=== PATIENT | female | born 1970 ===

== ENCOUNTER 2017-09-25 12:31 | Emergency (ER) | payer OTHER ==
[2017-09-25] MEDS ORDERED: Ketorolac 60 MG/2 ML SDV IM ONE ×2 (12:44→12:45)
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
--- NOTE | 2017-09-25 14:00 | CR ---
EXAMINATION: Left hand and wrist HISTORY: Pain COMPARISON: None TECHNIQUE: 2 views of the left hand and 2 views of the left wrist FINDINGS: There is a mildly displaced ulnar styloid fracture identified. There is also an impacted no ndisplaced distal radial metaphysis fracture identified. Mild degenerative changes noted within the w rist. Remaining osseous structures and joint spaces are preserved. IMPRESSION: 1. Mildly impacted distal radial metaphysis fracture. 2. Mildly displaced ulnar styloid fracture.
[2017-09-25] MEDS ORDERED: Acetaminophen/HYDROcodone 325-5 MG Tab ONE (14:33)
[2017-09-25] MEDS ORDERED: Acetaminophen/HYDROcodone 325-5 MG Tab PO ONE (14:35)
[2017-09-25 17:50] VITALS: BP 136/78
== END 2017-09-25 15:02 | disposition home or self-care (01) ==
LOC: MW.ED 12:31
DX: S52.612A Displaced fracture of left ulna styloid process, initial encounter for closed fracture (principal); S52.502A Unspecified fracture of the lower end of left radius, initial encounter for closed fracture; E78.00 Pure hypercholesterolemia, unspecified; F17.210 Nicotine dependence, cigarettes, uncomplicated; Z88.0 Allergy status to penicillin; X50.0XXA Overexertion from strenuous movement or load, initial encounter
CPT/HCPCS: 29125; 73100; 73120; 96372; 99283; A9270; J1885

== ENCOUNTER 2020-06-27 20:57 | Emergency (ER) | payer OTHER ==
[2020-06-27] MEDS ORDERED: Ondansetron 4 MG/2 ML SDV IVPUSH ONE (21:25)
[2020-06-27] MEDS ORDERED: Lactated Ringers 1,000 ML IV ONE (21:31)
[2020-06-27] MEDS ORDERED: Meclizine 25 MG Tab PO ONE (21:42)
[2020-06-27 22:02] LABS: BLOOD UREA NITROGEN,BUN 8 mg/dL (7.0-18.0); CARBON DIOXIDE,CO2 21.4 mmol/L (21.0-32.0); CHLORIDE,CL 102 mmol/L (98-107); GLUCOSE RANDOM 146 mg/dL (74-106); SODIUM,NA 135 mmol/L (136-145)
--- NOTE | 2020-06-27 22:37 | CT ---
CT HEAD DATE: 06/27/2020 CLINICAL HISTORY: Patient with frontal headache. TECHNIQUE: Standard CT scanning of the head was performed. COMPARISON: None. FINDINGS: There is no intracranial hemorrhage. There is no territorial infarction. There are mild microangiopathic changes. There is diffuse parenchymal volume loss. There is no mass effect or midline shift. The calvarium is unremarkable. The orbits are unremarkable. The paranasal sinuses demonstrate moderate ethmoid air cell mucosal thickening, aerosolized secretions in the right sphenoid and maxillary sinuses, as well as a mucous retention cyst in the right frontal sinus. The mastoid air cells are unremarkable. The soft tissues are unremarkable. IMPRESSION: 1. No intracranial hemorrhage or territorial infarction. 2. Mild microangiopathic changes and diffuse parenchymal volume loss. 3. Moderate paranasal mucosa sinus disease. Please note that all CT scans at this facility use dose modulation, iterative reconstruction, and/or weight-based dosing when appropriate to reduce radiation dose to as low as reasonably achievable. Dictated by: Keagan Dill MD @ 06/27/2020 22:35:09 (Electronically Signed)
[2020-06-27] MEDS ORDERED: Ketorolac 30 MG/ML SDV IVPUSH ONE (22:38)
--- NOTE | 2020-06-27 22:45 | CR ---
Indication: Chest discomfort Technique: Chest 1 view Comparison: Chest x-ray 02/06/2016 Findings/Impression: Cardiovascular and mediastinum: Heart size and vasculature are normal in caliber and appearance. Lungs and pleural space: Lungs are clear. No sign of infiltrate or mass. No sign of pleural effusion. No pneumothorax. Bones and soft tissues: No acute findings. Dictated by Syed Jules MD @ Jun 27 2020 10:43PM Signed by Dr. Syed Jules @ Jun 27 2020 10:44PM
--- NOTE | 2020-06-27 23:21 | EDM.PDOC ---
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 She denies any bilious emesis or hematemesis. She denies any preceding chest pain or shortness of breath and currently denies any chest pain or shortness of breath. She states that she denies any abdominal pain, diarrhea, melena, or hematochezia. She states that she did have a headache which is in the frontal area of her head which started approximately 1 hour prior to the episode at [employer]. She states that it was associated with feeling uneasy. She describes the pain as maximal at onset and has since improved. She denies any blurry vision, diplopia, numbness, tingling, trouble walking, trouble speaking, or trouble swallowing. She states that she does have a history of headaches however this felt worse. She also states that she feels loopy. She denies any spinning sensation but states that she does feel uneasy. She denies any family history of aneurysm. She denies any other symptoms. She denies any known sick contacts. She denies any new foods or drinks. REVIEW OF SYSTEMS: Constitutional: Denies fever, chills. Eyes: Denies eye pain Ears, Nose, Mouth, & Throat: Denies earache, sore throat, runny nose Cardiovascular: Denies chest pain Respiratory: Denies shortness of breath Gastrointestinal: Positive for nausea and vomiting. Denies diarrhea, hematochezia, melena, hematemesis, bilious emesis, abdominal pain Genitourinary: Denies hematuria, dysuria, vaginal bleeding, vaginal discharge Skin:Denies a rash Neurological: Positive for headache and dizziness. Denies blurred vision, numbness, tingling, weakness, trouble walking, trouble speaking, trouble swallowing Psychiatric: Denies depression PAST MEDICAL HISTORY: As per history of present illness and as reviewed below otherwise noncontributory. SURGICAL HISTORY: As per history of present illness and as reviewed below otherwise noncontributory. LMP: Hysterectomy SOCIAL HISTORY: As per history of present illness and as reviewed below otherwise noncontributory. FAMILY HISTORY: As per history of present illness and as reviewed below otherwise noncontributory. EXAMINATION OF ORGAN SYSTEMS/BODY AREAS: Constitutional: Blood pressure was 147/90, heart rate 101, respiratory rate 18 with an oxygen saturation of 97% on room air. Temperature 36.0 General: Ill-appearing woman who has an emesis basin in front of her. Psychiatric: Appropriate mood and affect. Eyes: No scleral icterus or conjunctival erythema pupils were 2 mm and reactive bilaterally. Extraocular movements were intact. No vertical, horizontal, or rotary nystagmus. ENMT: Moist mucous membranes. No pharyngeal erythema bilateral tympanic membranes clear without any erythema or effusion. Cardiovascular: Tachycardic but regular. No gallops, murmurs, or rubs. Bilateral upper extremity pulses symmetric and intact. No peripheral edema. No JVD. Respiratory: Lungs clear to auscultation bilaterally. No wheezes, rales, or rhonchi. Gastrointestinal: Soft, non-tender, non-distended. Normoactive bowel sounds Genitourinary: No suprapubic tenderness no CVA tenderness. Musculoskeletal: Normal range of motion. Skin: No lesions or abrasions. Neurological: AOx4. CN grossly intact. Stregth 5/5 in bilateral upper and lower extremity. Sensation is intact bilaterally in upper and lower extremity. Gait appears normal. Finger to nose, heel to han, rapid alternating movements intact. MEDICAL DECISION MAKING AND COURSE IN THE ED WITH INTERPRETATION/REVIEW OF DIAGNOSTIC STUDIES: This is a 50-year-old woman without any significant past medical history who comes to the emergency department with acute onset headache which was maximal at onset associated with nausea and vomiting who is experiencing vertigo-like symptoms with a normal neurological examination. At this time given that it his been 2 hours since onset we will obtain a CT head without contrast to evaluate for subarachnoid hemorrhage. We will provide the patient with Zofran for antinausea relief. Provide the patient with 1 L of lactated Ringer's bolus. Will also provide the patient with meclizine by mouth. Will hold off on pain medication at this time until CT head has resulted. Also given the sudden onset nausea and vomiting this could also be atypical presentation of ACS therefore we will obtain an EKG, chest x-ray, and cardiac work-up. Laboratory: CBC reveals a leukocytosis of 15.69 otherwise unremarkable. Coags are within normal limits. CMP is unremarkable except for hyponatremia at 135 and hyperglycemia at 146. [id number] glucose was found to be 129. Troponin x1 is negative Urinalysis was a clean catch and was negative for leukocyte esterase, negative for nitrites, and negative for blood. Interpretation: negative. Twelve-lead EKG interpreted by myself. Sinus tachycardia at a rate of 107beats per minute. Normal axis. FL interval is 153ms. QRS duration is 100ms. ST segments are normal without elevations or depressions. No Q waves present. Hypertrophy not noted there is an isolated T wave inversion in lead III. This appears to be unchanged from prior EKG dated 02/06/2016. Interpretation: Sinus tachycardia The radiological images were viewed by myself along with reading the report from the radiologist. CT head without contrast does not reveal any acute intracranial hemorrhage or abnormality. 1 view chest x-ray reveals no acute cardiopulmonary process. After CT had had resulted I did provide the patient with Toradol IV for pain relief. Repeat troponin was negative. After period of observation, the patient stated that her symptoms had significantly improved. At this time I do believe this is secondary to benign positional vertigo. I discussed with the patient that I be providing her with meclizine as needed for dizziness. I discussed the importance of following up with her primary care physician. She is given strict return precautions. The patient was amenable discharge at this time and had no further questions DISPOSITION: The patient was discharged home in stable condition. The patient will follow up with PCP within 1 week CONDITION: Fair PROCEDURES: None FINAL IMPRESSION(S)/DIAGNOSES: 1. Acute vertigo likely benign positional vertigo Mauricio Landa M.D. 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 Musculoskeletal History: Reports: Neck Pain, Chronic Other Musculoskeletal History: back sx Neurological History: Reports: None Psychiatric History: Reports: None Endocrine/Metabolic History: Reports: None Hematologic History: Reports: None Immunologic History: Reports: None Oncologic (Cancer) History: Reports: None Dermatologic History: Reports: None - Infectious Disease History Infectious Disease History: Reports: Chicken Pox - Past Surgical History Head Surgeries/Procedures: Reports: None Female Surgical History: Reports: Hysterectomy Musculoskeletal Surgical History: Reports: Other (See Below) Social & Family History - Family History Family Medical History: Noncontributory - Caffeine Use Caffeine Use: Reports: Coffee - Recreational Drug Use Recreational Drug Use: No ED ROS GENERAL - Review of Systems Review Of Systems: See Below ED EXAM, GENERAL - Physical Exam Exam: See Below Course - Vital Signs Last Recorded V/S: Last Vital Signs Temp 36.4 C 06/27/20 22:48 Pulse 81 06/28/20 02:00 Resp 16 06/28/20 02:00 BP 112/69 06/28/20 02:00 Pulse Ox 96 06/28/20 02:00 - Orders/Labs/Meds Labs: Laboratory Tests 06/27/20 06/27/20 06/27/20 Range/Units 21:32 21:35 21:35 WBC 15.69 H (4.0-11.0) K/uL RBC 5.01 (4.30-5.90) M/uL Hgb 15.6 (12.0-16.0) g/dL Hct 45.2 (36.0-46.0) % MCV 90.2 (80.0-98.0) fL MCH 31.1 (27.0-32.0) pg MCHC 34.5 (31.0-37.0) g/dL RDW Std Deviation 44.3 (28.0-62.0) fl RDW Coeff of Alycia 13 (11.0-15.0) % Plt Count 294 (150-400) K/uL MPV 9.50 (7.40-12.00) fL Neut % (Auto) 77.7 (48.0-80.0) % Lymph % (Auto) 16.8 (16.0-40.0) % [place] % (Auto) 4.6 (0.0-15.0) % Eos % (Auto) 0.6 (0.0-7.0) % Baso % (Auto) 0.3 (0.0-1.5) % Neut # (Auto) 12.2 H (1.4-5.7) K/uL Lymph # (Auto) 2.6 H (0.6-2.4) K/uL [place] # (Auto) 0.7 (0.0-0.8) K/uL Eos # (Auto) 0.1 (0.0-0.7) K/uL Baso # (Auto) 0.1 (0.0-0.1) K/uL INR 1.00 Sodium (136-145) mmol/L Potassium (3.5-5.1) mmol/L Chloride (98-107) mmol/L Carbon Dioxide (21.0-32.0) mmol/L BUN (7.0-18.0) mg/dL Creatinine (0.6-1.0) mg/dL Est Cr Clr Drug Dosing mL/min Estimated GFR (MDRD) ml/min Glucose (74-106) mg/dL POC Glucose 129 H (60-110) mg/dL Calcium (8.5-10.1) mg/dL Magnesium (1.8-2.4) mg/dL Total Bilirubin (0.2-1.0) mg/dL AST (15-37) IU/L ALT (14-63) IU/L Alkaline Phosphatase (46-116) U/L Troponin I (0.000-0.056) ng/mL Total Protein (6.4-8.2) g/dL Albumin (3.4-5.0) g/dL Globulin (2.6-4.0) g/dL Albumin/Globulin Ratio (0.9-1.6) Urine Color Urine Appearance Urine pH (5.0-8.0) Ur Specific [place] (1.001-1.035) Urine Protein (NEGATIVE) mg/dL Urine Glucose (UA) (NEGATIVE) mg/dL Urine Ketones (NEGATIVE) mg/dL Urine Occult Blood (NEGATIVE) Urine Nitrite (NEGATIVE) Urine Bilirubin (NEGATIVE) Urine Urobilinogen (<2.0) EU/dL Ur Leukocyte Esterase (NEGATIVE) 06/27/20 06/27/20 06/28/20 Range/Units 21:35 22:40 00:40 WBC (4.0-11.0) K/uL RBC (4.30-5.90) M/uL Hgb (12.0-16.0) g/dL Hct (36.0-46.0) % MCV (80.0-98.0) fL MCH (27.0-32.0) pg MCHC (31.0-37.0) g/dL RDW Std Deviation (28.0-62.0) fl RDW Coeff of Alycia (11.0-15.0) % Plt Count (150-400) K/uL MPV (7.40-12.00) fL Neut % (Auto) (48.0-80.0) % Lymph % (Auto) (16.0-40.0) % [place] % (Auto) (0.0-15.0) % Eos % (Auto) (0.0-7.0) % Baso % (Auto) (0.0-1.5) % Neut # (Auto) (1.4-5.7) K/uL Lymph # (Auto) (0.6-2.4) K/uL [place] # (Auto) (0.0-0.8) K/uL Eos # (Auto) (0.0-0.7) K/uL Baso # (Auto) (0.0-0.1) K/uL INR Sodium 135 L (136-145) mmol/L Potassium 4.0 (3.5-5.1) mmol/L Chloride 102 (98-107) mmol/L Carbon Dioxide 21.4 (21.0-32.0) mmol/L BUN 8 (7.0-18.0) mg/dL Creatinine 0.6 (0.6-1.0) mg/dL Est Cr Clr Drug Dosing 106.18 mL/min Estimated GFR (MDRD) > 60.0 ml/min Glucose 146 H (74-106) mg/dL POC Glucose (60-110) mg/dL Calcium 8.8 (8.5-10.1) mg/dL Magnesium 1.9 (1.8-2.4) mg/dL Total Bilirubin 0.3 (0.2-1.0) mg/dL AST 17 (15-37) IU/L ALT 25 (14-63) IU/L Alkaline Phosphatase 101 (46-116) U/L Troponin I < 0.050 < 0.050 (0.000-0.056) ng/mL Total Protein 7.9 (6.4-8.2) g/dL Albumin 4.1 (3.4-5.0) g/dL Globulin 3.8 (2.6-4.0) g/dL Albumin/Globulin Ratio 1.1 (0.9-1.6) Urine Color YELLOW Urine Appearance CLEAR Urine pH 5.5 (5.0-8.0) Ur Specific [place] >= 1.030 (1.001-1.035) Urine Protein NEGATIVE (NEGATIVE) mg/dL Urine Glucose (UA) NEGATIVE (NEGATIVE) mg/dL Urine Ketones NEGATIVE (NEGATIVE) mg/dL Urine Occult Blood NEGATIVE (NEGATIVE) Urine Nitrite NEGATIVE (NEGATIVE) Urine Bilirubin NEGATIVE (NEGATIVE) Urine Urobilinogen 0.2 (<2.0) EU/dL Ur Leukocyte Esterase NEGATIVE (NEGATIVE) Meds: Medications Discontinued Medications Generic Name Dose Route Start Last Admin Trade Name Freq PRN Reason Stop Dose Admin Lactated Ringer's 1,000 mls @ 999 mls/hr 06/27/20 21:31 06/27/20 21:38 Ringers, Lactated IV 06/27/20 22:31 999 mls/hr .BOLUS ONE Administration Ketorolac Tromethamine 15 mg 06/27/20 22:38 06/27/20 22:45 Toradol IVPUSH 06/27/20 22:39 15 mg ONETIME ONE Administration Meclizine HCl 25 mg 06/27/20 21:42 06/27/20 21:52 Antivert PO 06/27/20 21:43 25 mg ONETIME ONE Administration Ondansetron HCl 4 mg 06/27/20 21:25 06/27/20 21:38 Zofran IVPUSH 06/27/20 21:26 4 mg ONETIME ONE Administration Departure - Departure Time of Disposition: 01:45 Disposition: Home, Self-Care 01 Condition: Fair Clinical Impression: Vertigo Headache Qualifiers: Headache type: unspecified Headache chronicity pattern: acute headache In tractability: not intractable Qualified Code(s): R51.9 - Headache, unspecified - Discharge Information *PRESCRIPTION DRUG MONITORING PROGRAM REVIEWED*: No *COPY OF PRESCRIPTION DRUG MONITORING REPORT IN PATIENT PARRIS: No Prescriptions: Meclizine [Antivert] 25 mg PO Q6H #12 tab Instructions: Dizziness, [id number], Migraine Headache Referrals: Gary Ling MD [Primary Care Provider] - Forms: ED Department Discharge Additional Instructions: The patient is informed of any results of their evaluation and diagnostic workup and all questions are answered. They are given discharge instructions and return precautions. The patient is stable for discharge. The patient states they understand and agree with the plan and that they will return if their symptoms get worse or if they have any new concerns. The following information is given to patients seen in the emergency department who are being discharged to home. This information is to outline your options for follow-up care. We provide all patients seen in our emergency department with a follow-up referral. The need for follow-up, as well as the timing and circumstances, are variable depending upon the specifics of your emergency department visit. If you don't have a primary care physician on staff, we will provide you with a referral. We always advise you to contact your personal physician following an emergency department visit to inform them of the circumstance of the visit and for follow-up with them and/or the need for any referrals to a consulting specialist. The emergency department will also refer you to a specialist when appropriate. This referral assures that you have the opportunity for follow-up care with a specialist. All of these measure are taken in an effort to provide you with optimal care, which includes your follow-up. Under all circumstances we always encourage you to contact your private physician who remains a resource for coordinating your care. When calling for follow-up care, please make the office aware that this follow-up is from your recent emergency room visit. If for any reason you are refused follow-up, please contact the [facility] Emergency Department at and asked to speak to the emergency department charge nurse. [facility] [address] [place] [address] [id number] [address] [address] Please use [id number] Aleve or Excedrin for continued headache. Please use meclizine as needed for dizziness and nausea. Return to the emergency department for worsening headache, trouble walking, trouble speaking, trouble swallowing, vomiting that cannot be stopped. Please follow-up with your primary care physician within 2 to 3 days. Sepsis Event Note (ED) - Evaluation Sepsis Screening Result: No Definite Risk - Focused Exam Vital Signs: Vital Signs Temp Pulse Resp BP Pulse Ox 06/28/20 02:00 81 16 112/69 96 06/28/20 00:17 81 18 128/81 98 06/27/20 22:48 36.4 C 91 16 136/76 97 06/27/20 21:09 36.0 C L 101 H 18 147/90 H 97
[2020-06-28 00:17] VITALS: PULSE 81
[2020-06-28 04:15] VITALS: BP 112/69
== END 2020-06-28 02:00 | disposition home or self-care (01) ==
LOC: MW.ED 20:57
DX: R42 Dizziness and giddiness (principal); R51.9 Headache, unspecified; Z88.0 Allergy status to penicillin; Z90.710 Acquired absence of both cervix and uterus
CPT/HCPCS: 36415; 70450; 71045; 80053; 81003; 82962; 83735; 84484; 85025; 85610; 93005; 96374; 96375; 99284; A9270; J1885; J2405; J7120; 93010